=== PATIENT | female | born 1995 | race Caucasian/White ===

== ENCOUNTER 2019-06-10 11:13 | Observation (INO) | payer MEDICAID ==
[~2019-06-10] VITALS: Ht 165.1 cm; Wt 70.3 kg
== END 2019-06-10 12:00 | disposition home or self-care (01) ==
LOC: 8 EST LDRP 11:13
PROVIDERS: ADMIT Obstetrics & Gynecology; ATTEND Obstetrics & Gynecology
DX: O36.8390 Maternal care for abnormalities of the fetal heart rate or rhythm, unspecified trimester, not applicable or unspecified (principal); Z3A.38 38 weeks gestation of pregnancy
CPT/HCPCS: 59025; 99281; G0378

== ENCOUNTER 2019-06-18 09:54 | Observation (INO) | payer MEDICAID ==
[~2019-06-18] VITALS: Ht 165.1 cm; Wt 70.8 kg
== END 2019-06-18 13:30 | disposition left against medical advice (07) ==
LOC: 8 EST LDRP 09:54
PROVIDERS: ADMIT Obstetrics & Gynecology; ATTEND Obstetrics & Gynecology
DX: O41.03X0 Oligohydramnios, third trimester, not applicable or unspecified (principal); Z3A.39 39 weeks gestation of pregnancy
CPT/HCPCS: 59025; 76805; 76818; G0378